=== PATIENT | female | born 1955 | race Caucasian/White ===

== ENCOUNTER → 2024-05-11 | Outpatient (CLI) | payer MEDICARE, BC ==
--- NOTE | 2024-05-12 09:54 | MM ---
Reason for Exam: Screening (asymptomatic). Last mammogram was performed 1 year(s) and 9 month(s) ago. Patient History: Menarche at age 11. First Full-Term at age 23. Left ovary removed at age 48. Right ovary removed at age 27. Hysterectomy at age 27. Currently using Progesterone, starting at age 64. Mother had breast cancer, age 70. Risk Values: Rosalie 5 year model risk: 3.4%. NCI Lifetime model risk: 9.3%. Prior Study Comparison: 05/24/2016 Bilateral Screening Mammogram, [facility]. 04/12/2021 Bilateral Screening Mammogram, [facility]. 07/24/2022 Bilateral Screening Mammogram, [facility]. Tissue Density: The breasts are heterogeneously dense, which may obscure small masses. Findings: Analyzed By CAD. There is no suspicious group of microcalcifications or new suspicious mass in either breast. Overall Assessment: Benign, BI-RAD 2 Management: Screening Mammogram of both breasts in 1 year. . Patient should continue monthly self-breast exams. A clinical breast exam by your physician is recommended on an annual basis. This exam should not preclude additional follow-up of suspicious palpable abnormalities. Note on Rosalie scores and lifetime risk: 1. A Rosalie score greater than 3% is considered moderate risk. If this is the case, consider specialist referral to assess eligibility for a risk reducing agent. 2. If overall lifetime risk for the development of breast cancer is 20% or higher, the patient may qualify for future screening with alternating mammogram and breast MRI. [facility], , 05/12/2024 9:51 AM. Electronically signed and approved by: Jorge Nelson M.D. Radiologis
== END | disposition home or self-care (01) ==
LOC: RADMAMWWP 08:56
PROVIDERS: ATTEND Family Medicine
DX: Z12.31 Encounter for screening mammogram for malignant neoplasm of breast (principal); R92.333 Mammographic heterogeneous density, bilateral breasts; Z80.3 Family history of malignant neoplasm of breast; Z90.722 Acquired absence of ovaries, bilateral
CPT/HCPCS: 77063; 77067

== ENCOUNTER → 2024-09-23 | Outpatient (CLI) | payer MEDICARE, BC ==
--- NOTE | 2024-09-23 13:36 | CT ---
EXAMINATION TYPE: CT sinus wo con DATE OF EXAM: 09/23/2024 11:41 AM COMPARISON: None. CLINICAL INDICATION: Female, 69 years old with history of J32.9 sinusitis; , sinus congestion TECHNIQUE: Multiple thin axial images were obtained through the paranasal sinuses. Additional coronal and sagittal reformatted images were submitted for evaluation. Contrast used: none Oral contrast used: none CT DLP: 435.9 mGycm, Automated exposure control for dose reduction was used. FINDINGS: Frontal sinuses: Normally developed with scattered mild mucosal thickening. Frontal Recess: Patent Maxillary Sinuses: Normally developed with scattered mild mucosal thickening. Maxillary Infundibula([facility]): Mild narrowing due to mucosal thickening bilaterally., No Karina cells id entified. Ethmoid sinuses: Normally developed with scattered mild mucosal thickening. Ethmoidal notch: Protecte d and abutting the lateral lamina. Sphenoid sinuses: Normally developed and aerated. There is sellar sphenoid sinus pneumatization with out evidence of dehiscence. No dehiscence of carotid canal. No evidence of optic nerve dehiscence wi thin the sphenoid sinus. No evidence of Onodi cells. Sphenoethmoidal recesses: Clear. Nasal septum: Relatively straight with bony spurring extending into the left inferior turbinate more posteriorly.. Nasal Turbinates: Mild mucosal thickening most proximal of the right inferior and middle turbinate. Mastoid air cells & middle ears: The air cells are clear. The middle ears are grossly unremarkable. Modified Soft tissues & Brain: Partially seen without gross abnormality. Globes are intact. Other: Cribriform plate demonstrates symmetric Keros classification type 2 cribriform plate. No evidence of bony dehiscence of skull base. Lamina papyracea is intact without evidence of remote orbital fracture or orbital prolapse into the e thmoid sinus. IMPRESSION: 1. Mild paranasal sinus disease. 2. The ostiomeatal units, frontonasal and sphenoethmoidal recesses are clear. [facility], , 09/23/2024 1:34 PM
== END | disposition home or self-care (01) ==
LOC: RADCTMAIN 11:00
PROVIDERS: ATTEND Otolaryngology
DX: J32.9 Chronic sinusitis, unspecified (principal); J34.89 Other specified disorders of nose and nasal sinuses
CPT/HCPCS: 70486